=== PATIENT | male | born 1970 | race Caucasian/White ===

== ENCOUNTER 2020-08-27 14:43 | Inpatient (IN) | payer OTHER ==
[~2020-08-27] VITALS: Ht 167.6 cm; Wt 62.1 kg
[2020-08-27] MEDS ORDERED: BACTDSB PO (15:46)
[2020-08-27 16:12] LABS: BASOPHILS % (AUTO) 1.3 % (0.0-2.0); EOSINOPHILS % (AUTO) 2.2 % (1.0-6.0); HEMATOCRIT 40.6 % (41-53); HEMOGLOBIN 13.5 g/dL (13.5-17.5); LYMPHOCYTES # (AUTO) 1.4 K/uL (1.0-4.8); LYMPHOCYTES % (AUTO) 36.7 % (22.0-44.0); MEAN CORPUSCULAR HEMOGLOBIN 31.1 pg (26.0-34.0); MEAN CORPUSCULAR HGB CONC 33.3 G/dL (31.0-37.0); MEAN CORPUSCULAR VOLUME 94 fL (80-100); MONOCYTES # (AUTO) 0.7 K/uL (0.1-1.0); MONOCYTES % (AUTO) 16.6 % (2.0-9.0); NEUTROPHILS # (AUTO) 1.7 K/uL (1.8-7.7); NEUTROPHILS % (AUTO) 43.2 % (40.0-70.0); PLATELET COUNT (AUTO) 393 K/uL (150-450); RED BLOOD CELL COUNT(AUTO) 4.34 MIL/uL (4.50-5.90); RED CELL DISTRIBUTION WIDTH 13.1 % (11.5-14.5)
[2020-08-27 16:17] LABS: COVID AG,FIA SOURCE NASOPHARYNGEAL
[2020-08-27 16:21] LABS: ANION GAP 7 mmol/L (8-16); CALCIUM, TOTAL 8.6 mg/dL (8.8-10.5); CARBON DIOXIDE 30 mmol/L (22-29); CHLORIDE 103 mmol/L (98-107); CREATININE 0.71 mg/dL (0.60-1.30); GLOMERULAR FILTR. RATE CALC > 60 mL/min (>60); GLUCOSE,RANDOM 93 mg/dL (70-110); POTASSIUM 4.3 mmol/L (3.5-5.1); SODIUM SERUM 140 mmol/L (136-145); UREA NITROGEN, BLOOD 14 mg/dL (7-18)
[2020-08-27 16:27] LABS: ALANINE AMINOTRANSFERASE 24 U/L (12-78); ALBUMIN 3.1 g/dL (3.4-5.0); ALKALINE PHOSPHATASE 65 U/L (46-116); ASPARTATE AMINOTRANSFERASE 16 U/L (15-37); BILIRUBIN,TOTAL 0.3 mg/dL (0.1-1.0); TOTAL PROTEIN, SERUM 6.9 g/dL (6.4-8.2)
[2020-08-27] MEDS ORDERED: IPRATROPIUM BROMIDE 0.5 MG/2.5 ML NEB SOLUTION NEB PRN (16:30)
[2020-08-27] MEDS ORDERED: 0.9% SODIUM CHLORIDE 10 ML SYRINGE IVP PRN (16:30)
[2020-08-27] MEDS ORDERED: BISACODYL 10 MG RECTAL RECTAL SUPPOSITORY PR PRN (16:30)
[2020-08-27] MEDS ORDERED: ONDANSETRON HCL 4 MG/2 ML VIAL IVP PRN ×2 (16:30)
[2020-08-27] MEDS ORDERED: ALBUTEROL SULFATE 2.5 MG/0.5 ML NEB SOLUTION NEB PRN (16:30)
[2020-08-27] MEDS ORDERED: DOCUSATE SODIUM 100 MG CAPSULE PO PRN (16:30)
[2020-08-27] MEDS ORDERED: MAGNESIUM HYDROXIDE SUSPENSION 30 ML UDCUP PO PRN (16:30)
[2020-08-27] MEDS ORDERED: ACETAMINOPHEN 325 MG TABLET PO PRN ×2 (16:30)
[2020-08-27 18:27] VITALS: BP 125/75
[2020-08-27 23:32] VITALS: BP 123/77
[2020-08-28 03:38] LABS: AMPHET/METH SCREEN,URINE NEGATIVE (NEGATIVE); BARBITURATE SCREEN, URINE NEGATIVE (NEGATIVE); BENZODIAZEPINES SCREEN,URINE NEGATIVE (NEGATIVE); CANNABINOID SCREEN,URINE NEGATIVE (NEGATIVE); COCAINE SCREEN,URINE NEGATIVE (NEGATIVE); METHADONE SCREEN, URINE NEGATIVE (NEGATIVE); OPIATE SCREEN,URINE NEGATIVE (NEGATIVE)
[2020-08-28 03:40] LABS: PHENCYCLIDINE SCREEN,URINE NEGATIVE (NEGATIVE)
[2020-08-28 04:26] VITALS: BP 116/63
[2020-08-28 06:09] LABS: BASOPHILS % (AUTO) 1.1 % (0.0-2.0); HEMATOCRIT 40.7 % (41-53); HEMOGLOBIN 13.7 g/dL (13.5-17.5); LYMPHOCYTES # (AUTO) 1.5 K/uL (1.0-4.8); LYMPHOCYTES % (AUTO) 35.1 % (22.0-44.0); MEAN CORPUSCULAR HEMOGLOBIN 31.3 pg (26.0-34.0); MEAN CORPUSCULAR HGB CONC 33.7 G/dL (31.0-37.0); MEAN CORPUSCULAR VOLUME 93 fL (80-100); MONOCYTES # (AUTO) 0.6 K/uL (0.1-1.0); MONOCYTES % (AUTO) 13.8 % (2.0-9.0); NEUTROPHILS # (AUTO) 2.1 K/uL (1.8-7.7); PLATELET COUNT (AUTO) 403 K/uL (150-450); RED BLOOD CELL COUNT(AUTO) 4.38 MIL/uL (4.50-5.90); RED CELL DISTRIBUTION WIDTH 13.2 % (11.5-14.5)
[2020-08-28 06:54] LABS: ANION GAP 7 mmol/L (8-16); CALCIUM, TOTAL 8.7 mg/dL (8.8-10.5); CARBON DIOXIDE 27 mmol/L (22-29); CHLORIDE 105 mmol/L (98-107); CREATININE 0.76 mg/dL (0.60-1.30); GLOMERULAR FILTR. RATE CALC > 60 mL/min (>60); GLUCOSE,RANDOM 90 mg/dL (70-110); POTASSIUM 4.1 mmol/L (3.5-5.1); SODIUM SERUM 139 mmol/L (136-145); UREA NITROGEN, BLOOD 13 mg/dL (7-18)
[2020-08-28 07:49] VITALS: BP 105/58
[2020-08-28] MEDS ORDERED: HydrOXYzine PAMOATE 50 MG CAPSULE PO PRN (09:00)
[2020-08-28] MEDS: OLANZapine 5 MG TABLET PO SCH ×2 (09:37→20:55)
[2020-08-28 19:23] VITALS: BP 101/60
[2020-08-29 04:24] VITALS: BP 111/67
[2020-08-29] MEDS: OLANZapine 5 MG TABLET PO SCH ×2 (08:10→20:16)
[2020-08-29] MEDS: CHLORHEXIDINE GLUCONATE 4% 118 ML TOPICAL LIQUID TP SCH (08:10)
[2020-08-29 08:18] VITALS: BP 112/74
[2020-08-29 20:03] VITALS: BP 97/57
[2020-08-30 04:50] VITALS: BP 111/71
[2020-08-30 07:34] VITALS: BP 112/69
[2020-08-30] MEDS: CHLORHEXIDINE GLUCONATE 4% 118 ML TOPICAL LIQUID TP SCH (08:14)
[2020-08-30 20:38] VITALS: BP 108/61
[2020-08-30] MEDS ORDERED: OLANZapine 10 MG TABLET PO SCH (21:00)
[2020-08-31 00:29] VITALS: BP 112/61
[2020-08-31 05:28] VITALS: BP 114/59
[2020-08-31 07:22] VITALS: BP 108/65
[2020-08-31] MEDS: CHLORHEXIDINE GLUCONATE 4% 118 ML TOPICAL LIQUID TP SCH (09:00)
[2020-08-31] MEDS ORDERED: OLAN10TA74 PO (11:49)
== END 2020-08-31 17:30 | DRG 885 ==
LOC: EMS 14:47 → 6S 16:18
PROVIDERS: ADMIT Internal Medicine; ATTEND Internal Medicine
DX: F25.9 Schizoaffective disorder, unspecified (principal); R45.851 Suicidal ideations; Z59.0 Homelessness; F41.9 Anxiety disorder, unspecified; D64.9 Anemia, unspecified; D72.819 Decreased white blood cell count, unspecified; Z20.822 Contact with and (suspected) exposure to COVID-19
CPT/HCPCS: 80048; 80053; 85025; 99285; G0480

== ENCOUNTER 2020-11-16 09:15 | Inpatient (IN) | payer OTHER ==
[~2020-11-16] VITALS: Ht 167.6 cm; Wt 70.5 kg
[~2020-11-16 09:15] MED LIST: OLAN10TA74 PO
[2020-11-16] MEDS ORDERED: HALOPERIDOL 5 MG TABLET PO ONE (11:45)
[2020-11-16 12:02] LABS: COVID AG,FIA SOURCE NASOPHARYNGEAL
[2020-11-16] MEDS ORDERED: 0.9% SODIUM CHLORIDE 10 ML SYRINGE IVP PRN (12:30)
[2020-11-16] MEDS ORDERED: ACETAMINOPHEN 325 MG TABLET PO PRN ×2 (12:30→12:45)
[2020-11-16 12:41] LABS: EOSINOPHILS % (AUTO) 1.1 % (1.0-6.0); HEMOGLOBIN 15.1 g/dL (13.5-17.5); LYMPHOCYTES # (AUTO) 1.6 K/uL (1.0-4.8); LYMPHOCYTES % (AUTO) 22.4 % (22.0-44.0); MEAN CORPUSCULAR HEMOGLOBIN 31.1 pg (26.0-34.0); MEAN CORPUSCULAR HGB CONC 32.7 G/dL (31.0-37.0); MEAN CORPUSCULAR VOLUME 95 fL (80-100); MONOCYTES # (AUTO) 0.6 K/uL (0.1-1.0); MONOCYTES % (AUTO) 8.6 % (2.0-9.0); NEUTROPHILS # (AUTO) 4.8 K/uL (1.8-7.7); NEUTROPHILS % (AUTO) 66.9 % (40.0-70.0); PLATELET COUNT (AUTO) 243 K/uL (150-450); RED BLOOD CELL COUNT(AUTO) 4.85 MIL/uL (4.50-5.90); RED CELL DISTRIBUTION WIDTH 13.9 % (11.5-14.5)
[2020-11-16] MEDS ORDERED: MAGNESIUM HYDROXIDE SUSPENSION 30 ML UDCUP PO PRN (12:45)
[2020-11-16] MEDS ORDERED: ZOLPIDEM TARTRATE 5 MG TABLET PO PRN (12:45)
[2020-11-16 12:47] LABS: ANION GAP 4 mmol/L (8-16); CALCIUM, TOTAL 8.7 mg/dL (8.8-10.5); CARBON DIOXIDE 29 mmol/L (22-29); CHLORIDE 106 mmol/L (98-107); GLOMERULAR FILTR. RATE CALC > 60 mL/min (>60); GLUCOSE,RANDOM 91 mg/dL (70-110); POTASSIUM 4.4 mmol/L (3.5-5.1); SODIUM SERUM 139 mmol/L (136-145); UREA NITROGEN, BLOOD 14 mg/dL (7-18)
[2020-11-16 12:52] LABS: ALANINE AMINOTRANSFERASE 25 U/L (12-78); ALBUMIN 3.8 g/dL (3.4-5.0); ALKALINE PHOSPHATASE 61 U/L (46-116); ASPARTATE AMINOTRANSFERASE 18 U/L (15-37); BILIRUBIN,TOTAL 0.4 mg/dL (0.1-1.0); TOTAL PROTEIN, SERUM 7.6 g/dL (6.4-8.2)
[2020-11-16 16:02] VITALS: BP 113/77
[2020-11-16 19:53] VITALS: BP 127/68
[2020-11-17 05:08] VITALS: BP 115/52
[2020-11-17 07:42] VITALS: BP 125/77
[2020-11-17] MEDS: FAMOTIDINE 20 MG TABLET PO SCH (08:02)
[2020-11-17 08:39] LABS: AMPHET/METH SCREEN,URINE NEGATIVE (NEGATIVE); BARBITURATE SCREEN, URINE NEGATIVE (NEGATIVE); BENZODIAZEPINES SCREEN,URINE NEGATIVE (NEGATIVE); CANNABINOID SCREEN,URINE NEGATIVE (NEGATIVE); COCAINE SCREEN,URINE NEGATIVE (NEGATIVE); METHADONE SCREEN, URINE NEGATIVE (NEGATIVE); OPIATE SCREEN,URINE NEGATIVE (NEGATIVE)
[2020-11-17 08:40] LABS: PHENCYCLIDINE SCREEN,URINE NEGATIVE (NEGATIVE)
[2020-11-17 19:45] VITALS: BP 141/84
[2020-11-17] MEDS: OLANZapine 10 MG TABLET PO SCH (19:56)
[2020-11-18 06:00] VITALS: BP 131/67
[2020-11-18] MEDS: FAMOTIDINE 20 MG TABLET PO SCH (07:57)
[2020-11-18 08:16] VITALS: BP 110/63
[2020-11-18 20:18] VITALS: BP 120/69
[2020-11-18] MEDS: OLANZapine 10 MG TABLET PO SCH (20:19)
[2020-11-19 04:36] VITALS: BP 122/76
[2020-11-19 07:58] VITALS: BP 107/67
[2020-11-19] MEDS: FAMOTIDINE 20 MG TABLET PO SCH (08:06)
[2020-11-19] MEDS ORDERED: MOM30 PO (10:05)
[2020-11-19] MEDS ORDERED: FAMO20 PO (10:05)
[2020-11-19] MEDS ORDERED: ACET-2247 PO (10:05)
== END 2020-11-19 11:40 | DRG 880 ==
LOC: EMS 09:26 → 6S 13:42
PROVIDERS: ADMIT Internal Medicine; ATTEND Internal Medicine
DX: R45.851 Suicidal ideations (principal); F19.10 Other psychoactive substance abuse, uncomplicated; Z20.822 Contact with and (suspected) exposure to COVID-19; F25.9 Schizoaffective disorder, unspecified
CPT/HCPCS: 80053; 85025; 99285; G0480

== ENCOUNTER 2021-01-16 13:00 | Inpatient (IN) | payer OTHER ==
[~2021-01-16] VITALS: Ht 167.6 cm; Wt 63.6 kg
[~2021-01-16 13:00] MED LIST changes: +ACET-2247 PO; +FAMO20 PO; +MOM30 PO
[2021-01-16] MEDS ORDERED: LORazepam 1 MG TABLET PO ONE (14:15)
[2021-01-16] MEDS ORDERED: OLANZapine 5 MG RAPDIS TABLET PO ONE (14:15)
[2021-01-16 14:26] LABS: EOSINOPHILS % (AUTO) 0.6 % (1.0-6.0); HEMATOCRIT 42.2 % (41-53); HEMOGLOBIN 14.2 g/dL (13.5-17.5); LYMPHOCYTES # (AUTO) 0.8 K/uL (1.0-4.8); LYMPHOCYTES % (AUTO) 12.2 % (22.0-44.0); MEAN CORPUSCULAR HEMOGLOBIN 31.4 pg (26.0-34.0); MEAN CORPUSCULAR HGB CONC 33.7 G/dL (31.0-37.0); MEAN CORPUSCULAR VOLUME 93 fL (80-100); MONOCYTES # (AUTO) 0.7 K/uL (0.1-1.0); NEUTROPHILS # (AUTO) 4.7 K/uL (1.8-7.7); NEUTROPHILS % (AUTO) 75.2 % (40.0-70.0); PLATELET COUNT (AUTO) 226 K/uL (150-450); RED BLOOD CELL COUNT(AUTO) 4.53 MIL/uL (4.50-5.90)
[2021-01-16 14:27] LABS: COVID AG,FIA SOURCE NASOPHARYNGEAL
[2021-01-16 14:28] LABS: ANION GAP 9 mmol/L (8-16); CALCIUM, TOTAL 8.8 mg/dL (8.8-10.5); CARBON DIOXIDE 27 mmol/L (22-29); CHLORIDE 105 mmol/L (98-107); CREATININE 0.89 mg/dL (0.60-1.30); GLOMERULAR FILTR. RATE CALC > 60 mL/min (>60); GLUCOSE,RANDOM 113 mg/dL (70-110); POTASSIUM 3.9 mmol/L (3.5-5.1); SODIUM SERUM 141 mmol/L (136-145); UREA NITROGEN, BLOOD 13 mg/dL (7-18)
[2021-01-16 14:34] LABS: ALANINE AMINOTRANSFERASE 20 U/L (12-78); ALBUMIN 3.6 g/dL (3.4-5.0); ALKALINE PHOSPHATASE 65 U/L (46-116); ASPARTATE AMINOTRANSFERASE 20 U/L (15-37); BILIRUBIN,TOTAL 0.3 mg/dL (0.1-1.0); TOTAL PROTEIN, SERUM 6.8 g/dL (6.4-8.2)
[2021-01-16] MEDS ORDERED: ONDANSETRON HCL 4 MG/2 ML VIAL IVP PRN ×2 (14:45→15:00)
[2021-01-16] MEDS ORDERED: ACETAMINOPHEN 325 MG TABLET PO PRN ×2 (14:45→15:00)
[2021-01-16] MEDS ORDERED: IPRATROPIUM BROMIDE 0.5 MG/2.5 ML NEB SOLUTION NEB PRN (15:00)
[2021-01-16] MEDS ORDERED: ALBUTEROL SULFATE 2.5 MG/0.5 ML NEB SOLUTION NEB PRN (15:00)
[2021-01-16] MEDS ORDERED: BISACODYL 10 MG RECTAL RECTAL SUPPOSITORY PR PRN (15:00)
[2021-01-16] MEDS ORDERED: MAGNESIUM HYDROXIDE SUSPENSION 30 ML UDCUP PO PRN (15:00)
[2021-01-16 16:06] VITALS: BP 114/67
[2021-01-16 17:43] LABS: AMPHET/METH SCREEN,URINE NEGATIVE (NEGATIVE); BARBITURATE SCREEN, URINE NEGATIVE (NEGATIVE); BENZODIAZEPINES SCREEN,URINE NEGATIVE (NEGATIVE); CANNABINOID SCREEN,URINE NEGATIVE (NEGATIVE); COCAINE SCREEN,URINE NEGATIVE (NEGATIVE); METHADONE SCREEN, URINE NEGATIVE (NEGATIVE); OPIATE SCREEN,URINE NEGATIVE (NEGATIVE); PHENCYCLIDINE SCREEN,URINE NEGATIVE (NEGATIVE)
[2021-01-16] MEDS ORDERED: INFLUENZA VIRUS VACCINE QVS 2021-22 (6MO+)/PF 60 MCG/0.5 ML SYRINGE IM. ONE (18:00)
[2021-01-16] MEDS: ZOLPIDEM TARTRATE 5 MG TABLET PO PRN (20:16)
[2021-01-16 20:31] VITALS: BP 142/79
[2021-01-17 08:13] VITALS: BP 128/70
[2021-01-17] MEDS: OLANZapine 10 MG TABLET PO SCH (20:03)
[2021-01-17] MEDS: ZOLPIDEM TARTRATE 5 MG TABLET PO PRN (20:03)
[2021-01-17 20:05] VITALS: BP 123/82
[2021-01-18 04:05] VITALS: BP 110/60
[2021-01-18 08:09] VITALS: BP 115/72
[2021-01-18] MEDS: OLANZapine 10 MG TABLET PO SCH (20:22)
[2021-01-18] MEDS: ZOLPIDEM TARTRATE 5 MG TABLET PO PRN (20:22)
[2021-01-18 20:27] VITALS: BP 122/61
[2021-01-19 08:24] VITALS: BP 129/69
[2021-01-19] MEDS: OLANZapine 10 MG TABLET PO SCH (20:17)
[2021-01-20 04:36] VITALS: BP 118/70
[2021-01-20 08:20] VITALS: BP 118/70
== END 2021-01-20 17:00 | DRG 885 ==
LOC: EMS 13:05 → 6S 14:58
PROVIDERS: ADMIT Hospitalist; ATTEND Hospitalist
DX: F25.1 Schizoaffective disorder, depressive type (principal); R45.851 Suicidal ideations; Z20.822 Contact with and (suspected) exposure to COVID-19
CPT/HCPCS: 80053; 85025; 99285; G0480

== ENCOUNTER 2021-01-26 22:00 | Inpatient (IN) | payer OTHER ==
[~2021-01-26] VITALS: Ht 167.6 cm; Wt 72.1 kg
[2021-01-26 22:29] LABS: COVID AG,FIA SOURCE NASOPHARYNGEAL
[2021-01-26 22:38] LABS: BASOPHILS % (AUTO) 1.1 % (0.0-2.0); EOSINOPHILS % (AUTO) 1.9 % (1.0-6.0); HEMATOCRIT 42.7 % (41-53); LYMPHOCYTES # (AUTO) 2.4 K/uL (1.0-4.8); LYMPHOCYTES % (AUTO) 37.1 % (22.0-44.0); MEAN CORPUSCULAR HEMOGLOBIN 30.9 pg (26.0-34.0); MEAN CORPUSCULAR HGB CONC 32.9 G/dL (31.0-37.0); MEAN CORPUSCULAR VOLUME 94 fL (80-100); MONOCYTES # (AUTO) 0.8 K/uL (0.1-1.0); MONOCYTES % (AUTO) 11.9 % (2.0-9.0); NEUTROPHILS # (AUTO) 3.1 K/uL (1.8-7.7); PLATELET COUNT (AUTO) 236 K/uL (150-450); RED BLOOD CELL COUNT(AUTO) 4.54 MIL/uL (4.50-5.90); RED CELL DISTRIBUTION WIDTH 13.2 % (11.5-14.5)
[2021-01-26 22:48] LABS: ANION GAP 10 mmol/L (8-16); CALCIUM, TOTAL 8.6 mg/dL (8.8-10.5); CARBON DIOXIDE 29 mmol/L (22-29); CHLORIDE 105 mmol/L (98-107); CREATININE 0.79 mg/dL (0.60-1.30); GLOMERULAR FILTR. RATE CALC > 60 mL/min (>60); GLUCOSE,RANDOM 99 mg/dL (70-110); POTASSIUM 3.6 mmol/L (3.5-5.1); SODIUM SERUM 144 mmol/L (136-145); UREA NITROGEN, BLOOD 15 mg/dL (7-18)
[2021-01-26 22:53] LABS: ALANINE AMINOTRANSFERASE 22 U/L (12-78); ALBUMIN 3.6 g/dL (3.4-5.0); ALKALINE PHOSPHATASE 82 U/L (46-116); ASPARTATE AMINOTRANSFERASE 20 U/L (15-37); BILIRUBIN,TOTAL 0.5 mg/dL (0.1-1.0)
[2021-01-26] MEDS ORDERED: ONDANSETRON HCL 4 MG/2 ML VIAL IVP PRN (23:30)
[2021-01-27] VITALS: BP 125/76
[2021-01-27 08:45] VITALS: BP 115/80
[2021-01-27] MEDS ORDERED: ENOXAPARIN SODIUM 40 MG/0.4 ML PF SYRINGE SQ SCH (09:00)
[2021-01-27 16:30] LABS: AMPHET/METH SCREEN,URINE NEGATIVE (NEGATIVE); BARBITURATE SCREEN, URINE NEGATIVE (NEGATIVE); BENZODIAZEPINES SCREEN,URINE NEGATIVE (NEGATIVE); CANNABINOID SCREEN,URINE NEGATIVE (NEGATIVE); COCAINE SCREEN,URINE NEGATIVE (NEGATIVE); METHADONE SCREEN, URINE NEGATIVE (NEGATIVE); OPIATE SCREEN,URINE NEGATIVE (NEGATIVE); PHENCYCLIDINE SCREEN,URINE NEGATIVE (NEGATIVE)
[2021-01-27] MEDS: OLANZapine 10 MG TABLET PO SCH (20:40)
[2021-01-28 05:00] VITALS: BP 127/80
[2021-01-28 08:07] VITALS: BP 124/77
[2021-01-28] MEDS: ACETAMINOPHEN 325 MG TABLET PO PRN (10:16)
[2021-01-28 20:45] VITALS: BP 110/69
[2021-01-28] MEDS: OLANZapine 10 MG TABLET PO SCH (20:46)
[2021-01-29 04:48] VITALS: BP 131/75
[2021-01-29 07:27] VITALS: BP 132/99
[2021-01-29] MEDS: DIVALPROEX SODIUM 500 MG ER TABLET PO SCH ×2 (12:19→20:19)
[2021-01-29 15:29] VITALS: BP 104/65
[2021-01-29 19:55] VITALS: BP 133/83
[2021-01-29] MEDS: OLANZapine 10 MG TABLET PO SCH (20:19)
[2021-01-30 03:50] VITALS: BP 133/67
[2021-01-30] MEDS: DIVALPROEX SODIUM 500 MG ER TABLET PO SCH ×2 (08:05→20:38)
[2021-01-30 08:28] VITALS: BP 118/79
[2021-01-30 19:45] VITALS: BP 122/66
[2021-01-30] MEDS: OLANZapine 10 MG TABLET PO SCH (20:38)
[2021-01-31] MEDS: DIVALPROEX SODIUM 500 MG ER TABLET PO SCH ×2 (08:24→20:17)
[2021-01-31 15:38] VITALS: BP 106/62
[2021-01-31] MEDS: OLANZapine 10 MG TABLET PO SCH (20:17)
[2021-01-31 20:34] VITALS: BP 102/60
[2021-02-01 05:30] VITALS: BP 121/67
[2021-02-01] MEDS: DIVALPROEX SODIUM 500 MG ER TABLET PO SCH ×2 (08:28→20:13)
[2021-02-01] MEDS: ACETAMINOPHEN 325 MG TABLET PO PRN (08:41)
[2021-02-01 09:51] VITALS: BP 124/68
[2021-02-01] MEDS: OLANZapine 10 MG TABLET PO SCH (20:13)
[2021-02-01 21:29] VITALS: BP 115/71
[2021-02-02 05:39] VITALS: BP 118/69
[2021-02-02 07:35] VITALS: BP 122/67
[2021-02-02] MEDS: DIVALPROEX SODIUM 500 MG ER TABLET PO SCH ×2 (08:10→20:02)
[2021-02-02] MEDS ORDERED: DIVA-80 PO (14:05)
[2021-02-02 15:33] VITALS: BP 107/70
[2021-02-02 19:48] VITALS: BP 101/62
[2021-02-02] MEDS: OLANZapine 10 MG TABLET PO SCH (20:02)
== END 2021-02-02 20:50 | DRG 885 ==
LOC: EMS 22:02 → 6S 01-27 00:18
PROVIDERS: ADMIT Internal Medicine; ATTEND Internal Medicine
DX: F25.1 Schizoaffective disorder, depressive type (principal); R45.851 Suicidal ideations; Z20.822 Contact with and (suspected) exposure to COVID-19; R45.850 Homicidal ideations
CPT/HCPCS: 80053; 80164; 85025; 99285; G0480; J1650

== ENCOUNTER 2021-07-31 10:47 | Inpatient (IN) | payer OTHER ==
[~2021-07-31] VITALS: Ht 165.1 cm; Wt 63.6 kg
[~2021-07-31 10:47] MED LIST changes: -ACET-2247 PO; +DIVA-80 PO; -MOM30 PO
[2021-07-31] MEDS ORDERED: BACITRACIN 0.9 GM PACKET OINTMENT TP ONE (11:00)
[2021-07-31] MEDS ORDERED: ACETAMINOPHEN 500 MG TABLET PO ONE (11:00)
[2021-07-31 11:20] LABS: BASOPHILS % (AUTO) 0.9 % (0.0-2.0); EOSINOPHILS % (AUTO) 0.3 % (1.0-6.0); HEMATOCRIT 40.7 % (41-53); HEMOGLOBIN 13.7 g/dL (13.5-17.5); LYMPHOCYTES # (AUTO) 1.1 K/uL (1.0-4.8); LYMPHOCYTES % (AUTO) 20.6 % (22.0-44.0); MEAN CORPUSCULAR HEMOGLOBIN 31.3 pg (26.0-34.0); MEAN CORPUSCULAR HGB CONC 33.6 G/dL (31.0-37.0); MEAN CORPUSCULAR VOLUME 93 fL (80-100); MONOCYTES # (AUTO) 0.6 K/uL (0.1-1.0); MONOCYTES % (AUTO) 11.6 % (2.0-9.0); NEUTROPHILS # (AUTO) 3.5 K/uL (1.8-7.7); NEUTROPHILS % (AUTO) 66.6 % (40.0-70.0); PLATELET COUNT (AUTO) 245 K/uL (150-450); RED BLOOD CELL COUNT(AUTO) 4.37 MIL/uL (4.50-5.90); RED CELL DISTRIBUTION WIDTH 14.1 % (11.5-14.5)
[2021-07-31 11:37] LABS: ANION GAP 11 mmol/L (8-16); CARBON DIOXIDE 26 mmol/L (22-29); CHLORIDE 102 mmol/L (98-107); GLOMERULAR FILTR. RATE CALC > 60 mL/min (>60); GLUCOSE,RANDOM 96 mg/dL (70-110); POTASSIUM 3.8 mmol/L (3.5-5.1); SODIUM SERUM 139 mmol/L (136-145); UREA NITROGEN, BLOOD 13 mg/dL (7-18)
[2021-07-31 11:42] LABS: ALANINE AMINOTRANSFERASE 30 U/L (12-78); ALBUMIN 3.9 g/dL (3.4-5.0); ALKALINE PHOSPHATASE 70 U/L (46-116); ASPARTATE AMINOTRANSFERASE 28 U/L (15-37); BILIRUBIN,TOTAL 0.7 mg/dL (0.1-1.0); TOTAL PROTEIN, SERUM 7.7 g/dL (6.4-8.2)
[2021-07-31 11:43] LABS: COVID AG,FIA SOURCE NASOPHARYNGEAL
[2021-07-31] MEDS ORDERED: LORazepam 2 MG/ML VIAL IM ONE (11:45)
[2021-07-31] MEDS ORDERED: ONDANSETRON HCL 4 MG/2 ML VIAL IVP PRN (12:45)
[2021-07-31] MEDS ORDERED: ACETAMINOPHEN 325 MG TABLET PO PRN (12:45)
[2021-07-31] MEDS ORDERED: 0.9% SODIUM CHLORIDE 10 ML SYRINGE IVP PRN (12:45)
[2021-07-31 15:12] VITALS: BP 109/63
[2021-07-31 20:20] VITALS: BP 106/55
[2021-08-01 05:12] VITALS: BP 109/59
[2021-08-01 08:06] VITALS: BP 103/57
[2021-08-01 08:15] LABS: BASOPHILS % (AUTO) 0.4 % (0.0-2.0); EOSINOPHILS % (AUTO) 0.4 % (1.0-6.0); HEMATOCRIT 38.6 % (41-53); HEMOGLOBIN 12.9 g/dL (13.5-17.5); LYMPHOCYTES # (AUTO) 0.9 K/uL (1.0-4.8); LYMPHOCYTES % (AUTO) 11.3 % (22.0-44.0); MEAN CORPUSCULAR HEMOGLOBIN 31.3 pg (26.0-34.0); MEAN CORPUSCULAR HGB CONC 33.5 G/dL (31.0-37.0); MEAN CORPUSCULAR VOLUME 94 fL (80-100); MONOCYTES # (AUTO) 0.9 K/uL (0.1-1.0); NEUTROPHILS # (AUTO) 6.2 K/uL (1.8-7.7); NEUTROPHILS % (AUTO) 76.9 % (40.0-70.0); PLATELET COUNT (AUTO) 233 K/uL (150-450); RED BLOOD CELL COUNT(AUTO) 4.12 MIL/uL (4.50-5.90); RED CELL DISTRIBUTION WIDTH 14.2 % (11.5-14.5)
[2021-08-01 08:32] LABS: ALANINE AMINOTRANSFERASE 26 U/L (12-78); ALBUMIN 3.3 g/dL (3.4-5.0); ALKALINE PHOSPHATASE 62 U/L (46-116); ANION GAP 4 mmol/L (8-16); ASPARTATE AMINOTRANSFERASE 24 U/L (15-37); BILIRUBIN,TOTAL 0.6 mg/dL (0.1-1.0); CALCIUM, TOTAL 8.6 mg/dL (8.8-10.5); CARBON DIOXIDE 31 mmol/L (22-29); CHLORIDE 107 mmol/L (98-107); CREATININE 0.74 mg/dL (0.60-1.30); GLOMERULAR FILTR. RATE CALC > 60 mL/min (>60); GLUCOSE,RANDOM 90 mg/dL (70-110); POTASSIUM 3.9 mmol/L (3.5-5.1); SODIUM SERUM 142 mmol/L (136-145); TOTAL PROTEIN, SERUM 6.9 g/dL (6.4-8.2); UREA NITROGEN, BLOOD 14 mg/dL (7-18)
[2021-08-01] MEDS ORDERED: LORazepam 2 MG TABLET PO PRN (11:45)
[2021-08-01] MEDS: RisperiDONE 2 MG TABLET PO SCH ×2 (12:05→21:00)
[2021-08-01 15:48] VITALS: BP 105/65
[2021-08-01 20:22] VITALS: BP 100/64
[2021-08-02 08:33] VITALS: BP 104/73
[2021-08-02] MEDS: RisperiDONE 2 MG TABLET PO SCH ×2 (09:05→20:46)
[2021-08-02 16:10] VITALS: BP 107/55
[2021-08-02 20:52] VITALS: BP 116/67
[2021-08-03 05:10] VITALS: BP 118/75
[2021-08-03 07:18] LABS: AMPHET/METH SCREEN,URINE NEGATIVE (NEGATIVE); BARBITURATE SCREEN, URINE NEGATIVE (NEGATIVE); BENZODIAZEPINES SCREEN,URINE NEGATIVE (NEGATIVE); CANNABINOID SCREEN,URINE NEGATIVE (NEGATIVE); COCAINE SCREEN,URINE NEGATIVE (NEGATIVE); METHADONE SCREEN, URINE NEGATIVE (NEGATIVE); OPIATE SCREEN,URINE NEGATIVE (NEGATIVE); PHENCYCLIDINE SCREEN,URINE NEGATIVE (NEGATIVE)
[2021-08-03 07:40] VITALS: BP 104/62
[2021-08-03] MEDS: RisperiDONE 2 MG TABLET PO SCH ×2 (08:16→20:14)
[2021-08-03 15:22] VITALS: BP 110/68
[2021-08-03 20:16] VITALS: BP 98/66
[2021-08-04 04:30] VITALS: BP 108/61
[2021-08-04 07:56] VITALS: BP 100/83
[2021-08-04] MEDS: RisperiDONE 2 MG TABLET PO SCH (08:49)
[2021-08-04] MEDS ORDERED: RISP2TAB45 PO (12:48)
== END 2021-08-04 14:41 | DRG 885 ==
LOC: EMS 10:47 → 6S 13:49
PROVIDERS: ADMIT Internal Medicine; ATTEND Internal Medicine
DX: F23 Brief psychotic disorder (principal); F41.9 Anxiety disorder, unspecified; Z20.822 Contact with and (suspected) exposure to COVID-19; Z79.899 Other long term (current) drug therapy
CPT/HCPCS: 80053; 85025; 99285; G0480; J2060

== ENCOUNTER 2021-08-29 11:20 | Inpatient (IN) | payer OTHER ==
[~2021-08-29] VITALS: Ht 165.1 cm; Wt 75.0 kg
[~2021-08-29 11:20] MED LIST changes: -DIVA-80 PO; -FAMO20 PO; -OLAN10TA74 PO; +RISP2TAB45 PO
[2021-08-29] MEDS ORDERED: OLANZapine 5 MG TABLET PO ONE (11:30)
[2021-08-29 11:51] LABS: BASOPHILS % (AUTO) 0.9 % (0.0-2.0); EOSINOPHILS % (AUTO) 1.2 % (1.0-6.0); HEMATOCRIT 40.6 % (41-53); HEMOGLOBIN 13.3 g/dL (13.5-17.5); LYMPHOCYTES # (AUTO) 1.2 K/uL (1.0-4.8); LYMPHOCYTES % (AUTO) 27.1 % (22.0-44.0); MEAN CORPUSCULAR HEMOGLOBIN 30.6 pg (26.0-34.0); MEAN CORPUSCULAR HGB CONC 32.7 G/dL (31.0-37.0); MEAN CORPUSCULAR VOLUME 94 fL (80-100); MONOCYTES # (AUTO) 0.4 K/uL (0.1-1.0); NEUTROPHILS # (AUTO) 2.8 K/uL (1.8-7.7); NEUTROPHILS % (AUTO) 61.8 % (40.0-70.0); PLATELET COUNT (AUTO) 215 K/uL (150-450); RED BLOOD CELL COUNT(AUTO) 4.33 MIL/uL (4.50-5.90); RED CELL DISTRIBUTION WIDTH 13.7 % (11.5-14.5)
[2021-08-29 11:59] LABS: COVID AG,FIA SOURCE NASOPHARYNGEAL
[2021-08-29 11:59] LABS: ANION GAP 5 mmol/L (8-16); CALCIUM, TOTAL 8.7 mg/dL (8.8-10.5); CARBON DIOXIDE 31 mmol/L (22-29); CHLORIDE 105 mmol/L (98-107); CREATININE 0.66 mg/dL (0.60-1.30); GLOMERULAR FILTR. RATE CALC > 60 mL/min (>60); GLUCOSE,RANDOM 82 mg/dL (70-110); POTASSIUM 4.8 mmol/L (3.5-5.1); SODIUM SERUM 141 mmol/L (136-145); UREA NITROGEN, BLOOD 14 mg/dL (7-18)
[2021-08-29 12:05] LABS: ALANINE AMINOTRANSFERASE 24 U/L (12-78); ALBUMIN 3.5 g/dL (3.4-5.0); ALKALINE PHOSPHATASE 67 U/L (46-116); ASPARTATE AMINOTRANSFERASE 22 U/L (15-37); BILIRUBIN,TOTAL 0.4 mg/dL (0.1-1.0); TOTAL PROTEIN, SERUM 6.9 g/dL (6.4-8.2)
[2021-08-29] MEDS ORDERED: ZOLPIDEM TARTRATE 5 MG TABLET PO PRN (12:45)
[2021-08-29] MEDS ORDERED: ALBUTEROL SULFATE 2.5 MG/0.5 ML NEB SOLUTION NEB PRN (12:45)
[2021-08-29] MEDS ORDERED: ACETAMINOPHEN 325 MG TABLET PO PRN (12:45)
[2021-08-29] MEDS ORDERED: MAGNESIUM HYDROXIDE SUSPENSION 30 ML UDCUP PO PRN (12:45)
[2021-08-29 15:00] VITALS: BP 99/58
[2021-08-29] MEDS: HEPARIN SODIUM,PORCINE 5,000 UNITS/ML VIAL SQ SCH ×2 (16:00→23:21)
[2021-08-29 20:47] VITALS: BP 109/50
[2021-08-30 04:55] VITALS: BP 106/69
[2021-08-30 08:00] VITALS: BP 120/66
[2021-08-30 08:06] LABS: HIV 1-2 SCREEN 4TH GEN W/RFLX Non Reactive (Non Reactive)
[2021-08-30] MEDS: HEPARIN SODIUM,PORCINE 5,000 UNITS/ML VIAL SQ SCH ×2 (08:36→16:00)
[2021-08-30] MEDS: FAMOTIDINE 20 MG TABLET PO SCH (08:36)
[2021-08-30 16:21] VITALS: BP 108/61
[2021-08-30 19:55] VITALS: BP 117/78
[2021-08-31 04:40] VITALS: BP 123/68
[2021-08-31 07:40] VITALS: BP 116/75
[2021-08-31] MEDS: FAMOTIDINE 20 MG TABLET PO SCH (09:27)
[2021-08-31] MEDS: HEPARIN SODIUM,PORCINE 5,000 UNITS/ML VIAL SQ SCH ×2 (09:27)
[2021-08-31] MEDS ORDERED: OLANZapine 5 MG TABLET PO SCH (10:15)
[2021-08-31] MEDS ORDERED: OLAN5TAB52 PO (12:13)
== END 2021-08-31 16:11 | DRG 885 ==
LOC: EMS 11:20 → 6S 13:15
PROVIDERS: ADMIT Internal Medicine; ATTEND Internal Medicine
DX: F20.9 Schizophrenia, unspecified (principal); Z20.822 Contact with and (suspected) exposure to COVID-19
CPT/HCPCS: 80053; 85025; 87389; 99285; G0480; J1644

== ENCOUNTER 2021-11-27 17:31 | Emergency (ER) | payer MEDICAID, OTHER ==
[~2021-11-27] VITALS: Ht 165.1 cm; Wt 70.5 kg
[~2021-11-27 17:31] MED LIST changes: +OLAN5TAB52 PO; -RISP2TAB45 PO
[2021-11-27] MEDS ORDERED: ACETAMINOPHEN 500 MG TABLET PO ONE (19:15)
[2021-11-27] MEDS ORDERED: IBUPROFEN 600 MG TABLET PO ONE (19:15)
[2021-11-27 20:00] VITALS: BP 132/65
== END 2021-11-27 20:44 | disposition home or self-care (01) ==
LOC: EMS 17:33
DX: F25.9 Schizoaffective disorder, unspecified (principal); M79.605 Pain in left leg; M79.604 Pain in right leg; M79.602 Pain in left arm; F15.90 Other stimulant use, unspecified, uncomplicated; Z59.00 Homelessness unspecified; T67.5XXA Heat exhaustion, unspecified, initial encounter; X30.XXXA Exposure to excessive natural heat, initial encounter; Y93.89 Activity, other specified; Y92.89 Other specified places as the place of occurrence of the external cause; Y99.8 Other external cause status
CPT/HCPCS: 99281; 99283